=== PATIENT | male | born 1980 | race Caucasian/White ===

== ENCOUNTER 2018-02-09 15:19 | Emergency (ER) | payer OTHER ==
[~2018-02-09] VITALS: Ht 190.5 cm; Wt 127.0 kg
[2018-02-09 15:21] VITALS: TEMP 36.8; Ht 190.5 cm; Wt 127.0 kg
[2018-02-09] MEDS ORDERED: LORAZEPAM 1 MG TAB SL STA (15:26)
--- NOTE | 2018-02-09 15:39 | EMERGENCY ROOM VISIT NOTE ---
History Report prepared by Leena: Hardeep Somers Under the Supervision of: Dr. Shlomo Jaimes M.D. First contact with patient: 15:22 Chief Complaint: OVERDOSE (ACCIDENTAL) Stated Complaint: POSSIBLE ACCIDENTAL DRUG OVERDOSE History of Present Illness The patient is a 37 year old male who presents to the Emergency Room with after accidentally taking a second dose of his regularly prescribed medications today. The patient reports that he is prescribed Flecainide 150 mg twice per day , Paxil 80 mg per day, and Metoprolol XL 100 mg per day, The patient reports that he may have taken his regularly prescribed medications after 0915 this morning, but then accidentally took his medications again at 1200 as he felt he may have missed his morning doses. The patient states that he felt worse after taking the second dose of his medication, but denies feeling any palpitations, chest pain, shortness of breath, or any other illness. The patient notes that he is anxious as he is unsure if he took an accidental second dose of his medications. The patient denies any known drug allergies. Source of History: patient Onset: Earlier today Position: other (Global ) Quality: other ([place] as if he did not take his medication. ) Timing: constant Associated Symptoms: No chest pain, No SOB Note: Denies: Palpitations, general illness. Associated Symptoms: Anxiety Review of Systems See HPI for pertinent positives & negatives. A total of 10 systems reviewed and were otherwise negative. Past Medical & Surgical Medical Problems: (1) Hypertension Family History Patient reports no known family medical history. Social History Marital Status: Housing Status: lives with family Occupation Status: employed Current/Historical Medications Scheduled Atorvastatin (Lipitor), 40 MG PO DAILY Chlorthalidone (Hygroton), 25 MG PO DAILY Flecainide Acetate (Flecainide Acetate), 150 MG PO BID Metoprolol Succinate (Toprol Xl), 100 MG PO DAILY Paroxetine Hcl (Paxil), 80 MG PO DAILY Allergies Coded Allergies: No Known Allergies (Unverified , 02/09/18) Physical Exam Vital Signs Date Time Temp Pulse Resp B/P (MAP) Pulse Ox O2 Delivery O2 Flow Rate FiO2 02/09/18 16:37 68 18 120/59 98 Room Air 02/09/18 16:28 61 02/09/18 15:53 68 18 139/86 02/09/18 15:21 36.8 65 16 142/90 99 Room Air Physical Exam GENERAL: Patient is in no acute distress. HEENT: No acute trauma, normocephalic atraumatic, mucous membranes moist, no nasal congestion, no scleral icterus. NECK: No stridor, no adenopathy, no meningismus, trachea is midline. LUNGS: Clear to auscultation bilaterally, no wheeze, no rhonchi, breath sounds equal. HEART: Without murmurs gallops or rubs, regular rate and rhythm. ABDOMEN: Soft, nontender, bowel sounds positive, no hernias, no peritonitis. EXTREMITIES: No cyanosis or edema, full range of motion of all the joints without pain or difficulty, no signs for acute trauma. NEUROLOGIC: Oriented x 3, no acute motor or sensory deficits, no focal weakness. SKIN: No rash, no jaundice, no diaphoresis. Medical Decision & Procedures Medications Administered Medications (Trade) Dose Ordered Sig/Raul Route Start Time Stop Time Status Last Admin Dose Admin Lorazepam (Ativan Tab) 1 mg NOW STAT SL 02/09/18 15:26 02/09/18 15:29 DC 02/09/18 15:32 1 MG ECG Per My Interpretation Indication: toxicologic Rate (beats per minute): 63 Rhythm: normal sinus Findings: no ectopy, other (No ST elevation or PVCs. QTC was 483ms. ) Change: no significant change Change: Repeat EKG: Normal sinus rhythm, rate 60, no ST elevation, no PVCs, QTC is 482ms. ED Course 1524: The patient was evaluated in room B12. A complete history and physical exam was performed. 1526: Ordered Lorazepam 1mg SL. 1538: I discussed the patient's case with poison center. They do not feel that the patient needs to be watched for any extended time and will be okay to go home. Poison center states that the medications the patient took will not harm him with a double dosage. 1539: I updated the patient regarding the information from poison control. 1622: I reevaluated the patient, he is resting comfortably. Reevaluated the patient. Discussed results and discharge instructions: he verbalized understanding and agreement. The patient is ready for discharge. Medical Decision The patient is a 37 year old 37 who presents to the ED with complaints of accidental drug overdose. Differential diagnoses considered include anxiety, accidental medication overdose, dysrhythmia, QT prolongation, bradycardia, and tachycardia. . The patient presents after possibly taking 2 doses of flecainide, metoprolol and Paxil. He is actually not sure if he took double doses. He was at the outpatient clinic and then presents to the ER. Patient is not bradycardic or tachycardic, he is not in any distress. He is not hypotensive. EKG shows a normal sinus rhythm, there is a mild QT prolongation. I did discuss the case with the poison center, the patient should do fine even if he had taken double the doses of his meds. A repeat EKG was done about an hour later, no lengthening of the QT. The rhythm was still normal sinus. Repeat vital signs revealed no hypotension. The patient is being discharged, he was reassured. He received a dose of oral Ativan which helped his anxiety. Medication Reconcilliation Current Medication List: was personally reviewed by me Blood Pressure Screening Patient's blood pressure: Normal blood pressure Consults Time Called: 1530 Consulting Physician: poison center Returned Call: 1533 I discussed the patient's case with poison center. They do not feel that the patient needs to be watched for any extended time and will be okay to go home. Poison center states that the medications the patient took will not harm him with a double dosage. Impression Primary Impression: Accidental medication overdose Scribe Attestation The scribe's documentation has been prepared under my direction and personally reviewed by me in its entirety. I confirm that the note above accurately reflects all work, treatment, procedures, and medical decision making performed by me. Departure Information Dispostion Home / Self-Care Referrals No Doctor, Assigned (PCP) Forms HOME CARE DOCUMENTATION FORM, IMPORTANT VISIT INFORMATION, WORK / SCHOOL INSTRUCTIONS Patient Instructions My [facility] Additional Instructions return with any worsening symptoms ECG today was ok as we discussed
[2018-02-09] MEDS ORDERED: ATOR-24 PO (15:54)
[2018-02-09] MEDS ORDERED: PARO40TA3 PO (15:54)
[2018-02-09] MEDS ORDERED: HYG/25 PO (15:54)
[2018-02-09] MEDS ORDERED: METO-479 PO (15:54)
[2018-02-09] MEDS ORDERED: FLEC150T PO (15:54)
[2018-02-09 16:37] VITALS: BP 120/59; PULSE 68; O2SAT 98
== END 2018-02-09 16:43 | disposition home or self-care (01) ==
LOC: C.EDB 15:21
DX: T43.221A Poisoning by selective serotonin reuptake inhibitors, accidental (unintentional), initial encounter (principal); T46.2X1A Poisoning by other antidysrhythmic drugs, accidental (unintentional), initial encounter; X58.XXXA Exposure to other specified factors, initial encounter; I10 Essential (primary) hypertension

== ENCOUNTER 2021-06-21 17:34 | Inpatient (IN) ==
--- NOTE | 2021-06-21 17:38 | Emergency Department Note ---
Impression & Plan Cellulitis of knee, left, Adverse reaction to drug, Hypokalemia, Hypomagnesemia ED Provider Note Provider: Dominic Lyons MD DATE OF SERVICE: 06/21/2021 CHIEF COMPLAINT: Medication reaction HISTORY OF PRESENT ILLNESS: Patient is a 40-year-old gentleman history of atrial fibrillation on flecainide and metoprolol not on anticoagulation additionally with history of hypertension on chlorthalidone and longstanding Paxil use presenting today after medication reaction related to a left knee cellulitis is developed over the past several days . Patient states he sustained a small wound to his left knee a day or 2 ago after working out at the gym and noted yesterday some surrounding cellulitis and started Keflex (this was started yesterday). Today this worsened and spread significantly and he started Bactrim and then this afternoon got a IM dose of ceftriaxone as the redness had spread s ome. Shortly after this that an hour prior to arrival began to experience some hoarseness of his voice and a tingling sensation here. Came to the ER for further evaluation. Denies any difficulty breathing or pruritic rash. States he has had back trouble for without issue. Denies significant palpitations or other fever or systemic symptoms. Patient also states some mild pain of his left knee and did drain a little bit of purulence and some serous fluid yesterday. Patient reports some distant history of MRSA abscess in the past. Patient denies any significant pain with movement of the left knee. REVIEW OF SYSTEMS: A total of 10 review of systems was obtained and negative except as stated above in the HPI. PAST MEDICAL HISTORY: As noted above MEDICATIONS: Reviewed her medications with the patient SOCIAL HISTORY: Physician PHYSICAL EXAM: GENERAL: alert and oriented in no acute distress on stretcher Head: normocephalic and atraumatic EYES: No injection, discharge or icterus. NECK: Trachea midline. Supple. ENT: Mucous membranes pink and moist. Pharynx without erythema or exudate. LUNGS: Airway patent. No retractions. Breath sounds clear with good air entry bilaterally. HEART: Regular rate and rhythm. No chest wall tenderness ABDOMEN: Soft and non-tender, without guarding or rebound. SKIN: Acyanotic, warm, dry, without hives EXTREMITIES: Without swelling, tenderness or deformity except for very small wound anterior left left knee with scab. Some surrounding cellulitis but minimal fluctuance and no crepitus. Not circumferential. NEUROLOGICAL: No focal deficits. No aphasia. No facial droop or slurred speech. Ambulatory. EK bpm normal sinus rhythm. No PVC on the twelve-lead is noted. QTC of [address] segment elevation or depression. CONTINUOUS CARDIAC MONITORING: was ordered and showed a heart rate of 70s-80s bpm in normal sinus rhythm occasional PVC Patient's laboratory studies reviewed. Differential includes Cellulitis, abscess, MRSA infection, DVT, necrotizing fasciitis, dermatitis, drug eruption, allergic reaction, as well as other pathologies. IMPRESSION/MEDICAL DECISION MAKING: Patient presents appears to be a cellulitic left knee skin infection. Doubt this represents deeper bone infection. Doubt this represents joint infection. No significant pain with joint movement. No crepitus and I doubt necrotizing fasciitis. Distant history of MRSA reported for the patient. Took some Keflex yesterday and Bactrim at a dose of Rocephin today. Has been on Bactrim before. After the Rocephin began experiencing tingling in his throat and some hoarseness of his voice. No other allergic symptoms otherwise reported. Given a bit of Benadryl here. Basic labs obtained. Do not feel x-rays indicated as I doubt there is a bone issue here. With a quick point of care bedside ultrasound performed myself I do not see a clear abscess that could be drained although some cobblestoning consistent with cellulitis is noted here. White blood cell count is 10.7. Hypokalemia 2.7 noted. Patient afebrile. Cellulitic erythematous area was outlined. Patient states he is feeling bit better but his voice is a little bit off still. Discussed risk benefits associate with steroids and the infection and will defer at this time shared decision making. Discussed options for antibiotic treatment and with his SSRI not an option for Zyvox. Discussed doxycycline and clindamycin versus trial of Dalvance. Patient states with the area. Somewhat bigger area of redness today but he states his pain is feeling better. Discussed risk and benefits and given a first dose of clindamycin and doxycycline here in the ER. Discussed with him given an oral dose of potassium as well as a dose of IV potassium given hypokalemia. EKG obtained given the hypokalemia and magnesium was sent. Magnesium 1.7 and also repleted via IV. Patient given the small amount of additional Benadryl later but has not noted appreciable worsening of symptoms. There are some question of rash on his back but it is nonpruritic and not raised. Patient is breathing well and has not had any decline of throat status or respiratory status. In shared decision-making will replete the potassium, and have the patient observed overnight to ensure resolution of his throat and medication symptoms as well as improvement of his left knee cellulitis. The ospitalist was contacted. DIAGNOSIS: Left knee cellulitis, medication reaction, hypokalemia, hypomagnesemia DISPOSITION: Being evaluated by the hospitalist Past Med/Surg History Social History Smoking Status: Never smoker Preferred Language: Kiswahili Feels Safe at Home: Yes Allergies Allergies Allergy/AdvReac Type Severity Reaction Status Date / Time No Known Allergies Allergy Unverified 06/21/21 18:32 Home Meds Home Medications Medication Instructions Recorded Confirmed atorvastatin 40 mg tablet 40 mg PO HS 06/21/21 06/21/21 chlorthalidone 25 mg tablet 25 mg PO QAM 06/21/21 06/21/21 flecainide 150 mg tablet 150 mg PO BID 06/21/21 06/21/21 metoprolol succinate 25 mg 25 mg PO QAM 06/21/21 06/21/21 tablet,extended release 24 hr paroxetine HCl 40 mg tablet 80 mg PO DAILY 06/21/21 06/21/21 sulfamethoxazole 800 1 tab PO BID 06/21/21 06/21/21 mg-trimethoprim 160 mg tablet Results & Data (ED) Vital Signs Vital Signs - 24 hr 06/21/21 17:34 06/21/21 17:37 06/21/21 19:44 Temperature 35.1 C L Temperature Source Temporal Artery Scan Pulse Rate 87 Pulse Rate [Left] 75 Pulse Rhythm Regular Pulse Strength Normal Respiratory Rate 20 18 Respiratory Effort / Characteristics Non-Labored Spontaneous Respiratory Depth Normal Respiratory Pattern Regular Blood Pressure 161/89 H Blood Pressure [Left Arm] 125/95 Blood Pressure Mean 113 Blood Pressure Mean [Left Arm] 105 Blood Pressure Position Sitting Pulse Oximetry 99 99 Oxygen Delivery Method Room Air Room Air Room Air Sepsis Recent Fever Within 48 Hours No Sepsis New/Unexplained Change in Mental Status No Sepsis Action Taken by Nursing No Action Required 06/21/21 20:53 06/21/21 20:58 Temperature Temperature Source Pulse Rate Pulse Rate [Left] 75 Pulse Rhythm Pulse Strength Respiratory Rate 18 Respiratory Effort / Characteristics Respiratory Depth Respiratory Pattern Blood Pressure Blood Pressure [Left Arm] 125/95 102/86 Blood Pressure Mean Blood Pressure Mean [Left Arm] 105 91 Blood Pressure Position Pulse Oximetry 99 Oxygen Delivery Method Sepsis Recent Fever Within 48 Hours Sepsis New/Unexplained Change in Mental Status Sepsis Action Taken by Nursing Laboratory Data Result diagrams: 06/21/21 18:20 06/21/21 18:20 Lab Results 06/21/21 06/21/21 06/21/21 Range/Units 18:20 18:20 18:20 WBC 10.77 (4.8-10.8) K/uL RBC 4.22 L (4.7-6.1) M/uL Hgb 13.0 L (14.0-18.0) g/dL Hct 36.7 L (42-52) % MCV 87.0 (80-100) fL MCH 30.8 (25-34) pg MCHC 35.4 (32-36) g/dL RDW Std Deviation 37.8 (36.4-46.3) fL RDW Coeff of Grazyna 11.8 (11.5-14.5) % Plt Count 288 (130-400) K/uL MPV 9.1 (7.4-10.4) fL Immature Gran % (Auto) 0.2 % Neut % (Auto) 76.5 % Lymph % (Auto) 12.6 % Cameron % (Auto) 10.0 % Eos % (Auto) 0.6 % Baso % (Auto) 0.1 % Neut # (Auto) 8.23 H (1.4-6.5) K/uL Lymph # (Auto) 1.36 (1.2-3.4) K/uL Cameron # (Auto) 1.08 H (0.11-0.59) K/uL Eos # (Auto) 0.07 (0-0.5) K/uL Baso # (Auto) 0.01 (0-0.2) K/uL Immature Gran # (Auto) 0.02 (0.00-0.02) K/uL Sodium 136 (136-145) mmol/L Potassium 2.7 L (3.5-5.1) mmol/L Chloride 102 (98-107) mmol/L Carbon Dioxide 29 (21-32) mmol/L Anion Gap 5.0 (3-11) BUN 14 (7-18) mg/dl Creatinine 0.86 (0.6-1.4) mg/dl Est Cr Clr Drug Dosing 163.1 ml/min Est GFR ( Amer) 125.7 ml/min Est GFR (Non-Af Amer) 108.5 ml/min BUN/Creatinine Ratio 16.3 (10-20) Glucose 95 (70-99) mg/dl Calcium 9.1 (8.5-10.1) mg/dl Magnesium 1.7 L (1.8-2.4) mg/dl COVID-19 Eval Order SARS-CoV-2 (PCR) (Negative) 06/21/21 06/21/21 Range/Units 19:45 19:45 WBC (4.8-10.8) K/uL RBC (4.7-6.1) M/uL Hgb (14.0-18.0) g/dL Hct (42-52) % MCV (80-100) fL MCH (25-34) pg MCHC (32-36) g/dL RDW Std Deviation (36.4-46.3) fL RDW Coeff of Grazyna (11.5-14.5) % Plt Count (130-400) K/uL MPV (7.4-10.4) fL Immature Gran % (Auto) % Neut % (Auto) % Lymph % (Auto) % Cameron % (Auto) % Eos % (Auto) % Baso % (Auto) % Neut # (Auto) (1.4-6.5) K/uL Lymph # (Auto) (1.2-3.4) K/uL Cameron # (Auto) (0.11-0.59) K/uL Eos # (Auto) (0-0.5) K/uL Baso # (Auto) (0-0.2) K/uL Immature Gran # (Auto) (0.00-0.02) K/uL Sodium (136-145) mmol/L Potassium (3.5-5.1) mmol/L Chloride (98-107) mmol/L Carbon Dioxide (21-32) mmol/L Anion Gap (3-11) BUN (7-18) mg/dl Creatinine (0.6-1.4) mg/dl Est Cr Clr Drug Dosing ml/min Est GFR ( Amer) ml/min Est GFR (Non-Af Amer) ml/min BUN/Creatinine Ratio (10-20) Glucose (70-99) mg/dl Calcium (8.5-10.1) mg/dl Magnesium (1.8-2.4) mg/dl COVID-19 Eval Order Covid19 at [facility] SARS-CoV-2 (PCR) NEGATIVE (Negative) Administered Medications Potassium Chloride (K Brock / Wtr) 10 meq in 100 mls @ 100 mls/hr IV Q1H STA Stop: 06/21/21 21:54 Last Admin: 06/21/21 21:28 Dose: 100 mls/hr Documented by: [id number] Discontinued Medications Clindamycin HCl (Clindamycin Hcl 150 Mg Cap) 450 mg PO NOW ONE Stop: 06/21/21 18:47 Last Admin: 06/21/21 19:06 Dose: 450 mg Documented by: [id number] Diphenhydramine HCl (Diphenhydramine 50 Mg/Ml Vial) 25 mg IV NOW STA Stop: 06/21/21 17:48 Last Admin: 06/21/21 18:25 Dose: 25 mg Documented by: [id number] Diphenhydramine HCl (Diphenhydramine 50 Mg/Ml Vial) 25 mg IV NOW STA Stop: 06/21/21 19:32 Last Admin: 06/21/21 19:39 Dose: 25 mg Documented by: [id number] Doxycycline Hyclate (Doxycycline Hyclate 100 Mg Cap) 100 mg PO NOW STA Stop: 06/21/21 18:47 Last Admin: 06/21/21 19:06 Dose: 100 mg Documented by: [id number] Potassium Chloride (K Brock / Wtr) 10 meq in 100 mls @ 100 mls/hr IV ONE ONE Stop: 06/21/21 20:30 Last Infusion: 06/21/21 21:15 Dose: 0 mls/hr Documented by: [id number] Admin: 06/21/21 19:39 Dose: 100 mls/hr Documented by: [id number] Magnesium Sulfate/Dextrose (Magnesium Sulfate / D5w) 1 gm in 100 mls @ 200 mls/hr IV Q30M PAYAM Stop: 06/21/21 21:14 Last Infusion: 06/21/21 21:23 Dose: 0 mls/hr Documented by: [id number] Admin: 06/21/21 20:51 Dose: 200 mls/hr Documented by: [id number] Potassium Chloride (Potassium Chloride Crtab 20 Meq Tabcr) 40 meq PO NOW STA Stop: 06/21/21 19:32 Last Admin: 06/21/21 19:39 Dose: 40 meq Documented by: [id number] Discharge Plan Visit Data Chief Complaint: Allergic Reaction Stated Complaint: ALLERGIC REACTION TO MEDICINE, SOB ED Provider: Dominic Loyns Discharge Problem: Cellulitis of knee, left, Adverse reaction to drug, Hypokalemia, Hypomagnesemia Patient Disposition: Being Evaluated by Hospitalist Condition: Good Prescriptions Prescriptions: No Action atorvastatin 40 mg tablet 40 mg PO HS RF: 0 flecainide 150 mg tablet 150 mg PO BID RF: 0 chlorthalidone 25 mg tablet 25 mg PO QAM RF: 0 sulfamethoxazole-trimethoprim 800-160 mg tablet 1 tab PO BID RF: 0 metoprolol succinate 25 mg tablet extended release 24 hr 25 mg PO QAM RF: 0 paroxetine HCl 40 mg tablet 80 mg PO DAILY RF: 0 Referrals Referrals: Duane Serna MD [Primary Care Provider] - Discharge Problem: Adverse reaction to drug Qualifiers: Encounter type: initial encounter Qualified Code(s): T50.905A - Adverse effect of unspecified drugs, medicaments and biological substances, initial encounter
[2021-06-21] MEDS ORDERED: diphenhydrAMINE 50 MG/ML VIAL IV STA ×2 (17:47→19:31)
[2021-06-21 18:32] LABS: Basophils # (auto) 0.01 K/uL (0-0.2); Basophils % (auto) 0.1 %; Eosinophils # (auto) 0.07 K/uL (0-0.5); Eosinophils % (auto) 0.6 %; Hematocrit (blood only) 36.7 % (42-52); Immature Granulocytes # (auto) 0.02 K/uL (0.00-0.02); Immature Granulocytes % (auto) 0.2 %; Lymphocytes # (auto) 1.36 K/uL (1.2-3.4); Lymphocytes % (auto) 12.6 %; Mean Corpuscular Hemoglobin 30.8 pg (25-34); Mean Corpuscular Hgb Conc 35.4 g/dL (32-36); Mean Platelet Volume 9.1 fL (7.4-10.4); Monocytes # (auto) 1.08 K/uL (0.11-0.59); Neutrophils # (auto) 8.23 K/uL (1.4-6.5); Neutrophils % (auto) 76.5 %; Platelet Count 288 K/uL (130-400); RDW Coefficient of Variation 11.8 % (11.5-14.5); RDW Standard Deviation 37.8 fL (36.4-46.3); Red Blood Count 4.22 M/uL (4.7-6.1); White Blood Count 10.77 K/uL (4.8-10.8)
[2021-06-21] MEDS ORDERED: CLINDAMYCIN HCL 150 MG CAP PO ONE (18:46)
[2021-06-21] MEDS ORDERED: DOXYCYCLINE HYCLATE 100 MG CAP PO STA (18:46)
[2021-06-21 18:49] LABS: BUN Creatinine Ratio 16.3 (10-20); Calcium 9.1 mg/dl (8.5-10.1); Creatinine Clr Calc Pharmacy 163.1 ml/min; Est GFR (African American) 125.7 ml/min; Est GFR (Non-African American) 108.5 ml/min; Potassium 2.7 mmol/L (3.5-5.1)
[2021-06-21] MEDS ORDERED: POTASSIUM CHLORIDE / WTR 10 MEQ/100 ML PLCT IV ONE (19:31)
[2021-06-21] MEDS ORDERED: POTASSIUM CHLORIDE CRTAB 20 MEQ TABCR PO STA (19:31)
[2021-06-21] MEDS: MAGNESIUM SULFATE / D5W 1 GM/100 ML BAG IV SCH (20:51)
[2021-06-21] MEDS ORDERED: POTASSIUM CHLORIDE / WTR 10 MEQ/100 ML PLCT IV STA (20:55)
--- NOTE | 2021-06-21 21:50 | History and Physical Report ---
DATE OF ADMISSION: 06/21/2021. CHIEF COMPLAINT: Allergic reaction and cellulitis. HISTORY OF PRESENT ILLNESS: A 40-year-old male with past medical history significant for hyperlipidemia, prediabetes, paroxysmal atrial fibrillation, hypertension, history of chronic anxiety disorder, who presents with allergic reaction. The patient had kneeled down about a week ago and had a pebble stuck on his left knee. Then, he started developing erythema around the left knee and he took Keflex. It was not getting better and he had Rocephin and Bactrim today in the doctor's office. After which, his throat felt like hoarse and , was brought into the ER for allergic reaction. In the ER, he received IV Benadryl and is feeling better and also found to have magnesium of 1.7, potassium of 2.7. Currently feeling better, still has some hoarseness of voice, but never had any shortness of breath, no difficulty swallowing. No chest pain, no shortness of breath, no palpitations, no headache, no dizziness, no blurred vision, no double vision, no earache, no runny nose, no sore throat, no cough, no fevers, no nausea, no abdominal pain, normal bowel and bladder movements. No blood in stool or black stools. Normal bladder movements. Currently, resting comfortably and hemodynamically stable. ALLERGIES: No known drug allergies. PAST MEDICAL HISTORY: As mentioned above. PAST SURGICAL HISTORY: Scaphoid fracture repair, tonsillectomy and adenoidectomy, repair of inguinal hernia. MEDICATIONS: The patient is on current Bactrim and Keflex and chlorthalidone 25 mg p.o. daily, flecainide 150 mg p.o. b.i.d., metoprolol succinate 25 mg p.o. daily, paroxetine 80 mg p.o. daily, atorvastatin 40 mg p.o. daily, aspirin 81 mg p.o. daily. FAMILY HISTORY: Significant for maternal uncle had gallbladder cancer, father has high cholesterol, uncle has high cholesterol. SOCIAL HISTORY: . No smoking. Seven beers per week. No drug use. REVIEW OF SYSTEMS: As per HPI. Rest of the review of systems is negative. PHYSICAL EXAMINATION: GENERAL: The patient is of moderate build, not in acute distress. VITAL SIGNS: Temperature 35.1, pulse 75, respiratory rate 18, blood pressure 102/86, and oxygen 99% on room air. HEENT: Pupils equal, round and reactive to light. Oral mucosa moist. NECK: No JVD. No neck masses. CARDIOVASCULAR: S1 and S2 heard. Regular rate and rhythm. No murmur, no gallop. RESPIRATORY SYSTEM: Normal AP diameter. No accessory muscle use. No wheezing, no crackles. ABDOMEN: Soft, bowel sounds present, nontender, no distention. CENTRAL NERVOUS SYSTEM: Alert and oriented. Speech is clear. No facial droop. Insight is good. He moves extremities. EXTREMITIES: Left knee shows small wound on the left knee with no open drainage and erythematous changes going down into the crowder, mild warmth on palpation, mild tenderness near the wound. LABORATORY DATA: WBC 10.7, hemoglobin 13, hematocrit 36.7, platelets 288. Sodium 136, potassium 2.7, chloride 102, bicarbonate 29, BUN 14, creatinine 0.8, serum glucose 95, calcium 9.1, magnesium 1.7. EKG: Normal sinus rhythm, rate of 75, QTc of 484, no significant change was found. ASSESSMENT AND PLAN: This is a 40-year-old male, presents with allergic reaction and cellulitis. 1. Allergic reaction, possibly to Bactrim. The patient also had Keflex and Rocephin, but did fine with penicillin in the past, but we will hold off cephalosporin and Bactrim for now .Received IV Benadryl in the Emergency Room. We will place him on Zyrtec 10 mg daily, IV Benadryl p.r.n., Pepcid 20 mg b.i.d. and prednisone and monitor in the med-telemetry.Taper prednisone for a week. 2. Left Lower extremity cellulitis involving knee. Er started on po Doxycycline and clindamycin which will be continued. 3. Hypokalemia and hypomagnesemia. We will replace. Follow repeat laboratories. 4. History of hypertension. Continue his chlorthalidone and metoprolol succinate. Monitor the blood pressure.Followup Potassium as on chlorthalidone. 5. History of paroxysmal atrial fibrillation, on flecainide and metoprolol succinate. 6. History of generalized anxiety disorder, on paroxetine. 7. History of hyperlipidemia, on statin. 8. Deep venous thrombosis prophylaxis, we will place on heparin subcutaneously. DISPOSITION: Closely monitor in the med-tele. PT/OT prior to discharge. Social service to help with discharge planning. Level 1, full code. Job ID: [id number] MTDD
[2021-06-21] MEDS ORDERED: POLYETHYLENE (MIRALAX) 17 GM PACK PO PRN (22:27)
[2021-06-21] MEDS ORDERED: ACETAMINOPHEN 325 MG TAB PO PRN (22:27)
[2021-06-21] MEDS ORDERED: SODIUM CHLORIDE 0.9% 1000ML 1,000 ML IV SCH (22:27)
[2021-06-21] MEDS ORDERED: ONDANSETRON INJ 2 MG/ML 2 ML VIAL IV PRN (22:27)
[2021-06-21] MEDS ORDERED: diphenhydrAMINE 50 MG/ML VIAL IV PRN (22:27)
[2021-06-21] MEDS ORDERED: NITROGLYCERIN SL 0.4 MG/TAB TAB SL PRN (22:27)
[2021-06-21] MEDS ORDERED: CETIRIZINE HCL 10 MG TABLET PO SCH (22:27)
[2021-06-21] MEDS ORDERED: ATORVASTATIN 40 MG TAB PO SCH (22:27)
[2021-06-21] MEDS: FLECAINIDE ACETATE 100 MG TABLET PO SCH (23:37)
[2021-06-21] MEDS: FAMOTIDINE 20 MG in SYRINGE 3 ML IV SCH (23:38)
[2021-06-21] MEDS: ENOXAPARIN INJ 40 MG/0.4 ML SYR SQ SCH (23:39)
[2021-06-21] MEDS: predniSONE 20 MG TAB PO SCH (23:40)
[2021-06-22] MEDS: MAGNESIUM SULFATE / D5W 1 GM/100 ML BAG IV SCH (00:11)
[2021-06-22 05:56] LABS: Basophils # (auto) 0.02 K/uL (0-0.2); Basophils % (auto) 0.2 %; Eosinophils # (auto) 0.08 K/uL (0-0.5); Eosinophils % (auto) 0.8 %; Hematocrit (blood only) 35.5 % (42-52); Hemoglobin 12.5 g/dL (14.0-18.0); Immature Granulocytes # (auto) 0.02 K/uL (0.00-0.02); Immature Granulocytes % (auto) 0.2 %; Lymphocytes # (auto) 1.52 K/uL (1.2-3.4); Lymphocytes % (auto) 14.4 %; Mean Corpuscular Hemoglobin 30.8 pg (25-34); Mean Corpuscular Hgb Conc 35.2 g/dL (32-36); Mean Corpuscular Volume 87.4 fL (80-100); Mean Platelet Volume 9.4 fL (7.4-10.4); Monocytes # (auto) 0.89 K/uL (0.11-0.59); Monocytes % (auto) 8.4 %; Neutrophils # (auto) 8.03 K/uL (1.4-6.5); Platelet Count 318 K/uL (130-400); RDW Coefficient of Variation 11.8 % (11.5-14.5); Red Blood Count 4.06 M/uL (4.7-6.1); White Blood Count 10.56 K/uL (4.8-10.8)
[2021-06-22 06:15] LABS: BUN Creatinine Ratio 10.9 (10-20); Calcium 8.5 mg/dl (8.5-10.1); Est GFR (African American) 121.8 ml/min; Magnesium 2.3 mg/dl (1.8-2.4); Potassium 3.4 mmol/L (3.5-5.1)
[2021-06-22] MEDS: CLINDAMYCIN HCL 150 MG CAP PO SCH ×3 (06:26→18:35)
[2021-06-22 07:41] LABS: Estimated Average Glucose 123 mg/dl; Hemoglobin A1C 5.9 % (4.5-5.6)
[2021-06-22] MEDS: DOXYCYCLINE HYCLATE 100 MG CAP PO SCH ×2 (08:10→18:35)
[2021-06-22] MEDS: FAMOTIDINE 20 MG in SYRINGE 3 ML IV SCH (08:10)
[2021-06-22] MEDS: predniSONE 20 MG TAB PO SCH (08:10)
[2021-06-22] MEDS: FLECAINIDE ACETATE 100 MG TABLET PO SCH (08:11)
[2021-06-22] MEDS ORDERED: PARoxetine HCL 20 MG TAB PO SCH (09:00)
[2021-06-22] MEDS ORDERED: CHLORTHALIDONE 25 MG TAB PO SCH (09:00)
[2021-06-22] MEDS ORDERED: ADVANCED PROBIOTIC 1250 MG CAPSULE PO SCH (09:00)
[2021-06-22] MEDS ORDERED: METOPROLOL SUCC 25MG EXT REL TAB PO SCH (09:00)
[2021-06-22] MEDS ORDERED: CALCIUM CARBONATE 500 MG CHEWABLE TAB PO PRN (09:16)
[2021-06-22] MEDS ORDERED: PANTOprazole 40 MG TAB PO SCH (09:30)
[2021-06-22] MEDS: ENOXAPARIN INJ 40 MG/0.4 ML SYR SQ SCH (10:01)
[2021-06-22] MEDS ORDERED: POTASSIUM CHLORIDE CRTAB 20 MEQ TABCR PO STA (10:01)
[2021-06-22] MEDS ORDERED: POTASSIUM CHLORIDE 10 MEQ TABCR PO STA (10:05)
--- NOTE | 2021-06-22 14:56 | XRay Report ---
XR knee LT 1 or 2V routine CLINICAL HISTORY: r/o foreign body COMPARISON: None. DISCUSSION: No acute fracture dislocation seen. Few calcifications are seen within anterior aspect of the left kn ee, mostly within soft tissue overlying tibial tuberosity and might represent periarticular calcifica tions, foreign body is less likely. Mild soft tissue edema is seen overlying right knee joint. IMPRESSION: No acute fracture dislocation. Multiple calcifications anteriorly to the tibial tuberosity, likely representing degenerative process . Foreign bodies are less likely. ACT 112: Negative or not required by law. The above report was generated using voice recognition software. It may contain grammatical, syntax o r spelling errors. Electronically signed by: Monica Bee DO 06/22/2021 2:54 PM
--- NOTE | 2021-06-22 16:58 | Electrocardiogram Report ---
Test Reason : Blood Pressure : / mmHG Vent. Rate : 075 BPM Atrial Rate : 075 BPM P-R Int : 180 ms QRS Dur : 102 ms QT Int : 434 ms P-R-T Axes : 020 -20 034 degrees QTc Int : 484 ms Normal sinus rhythm Prolonged QT Abnormal ECG When compared with ECG of 09-FEB-2018 16:27, No significant change was found Confirmed by Edy Leon ([id number]) on 06/22/2021 4:57:48 PM Referred By: REFERRED SELF Confirmed By:Edy Leon
--- NOTE | 2021-06-22 18:24 | Hospitalist Progress Note ---
Date of Service June 22, 2021 Assessment & Plan (1) Adverse reaction to drug: Plan: Present on admission after developing allergic reaction possible due to Bactrim vs Rocephin or Keflex Received IV Benadryl in the Emergency Room. He was started on Zyrtec 10 mg daily, IV Benadryl p.r.n and Pepcid 20 mg b.i.d. prednisone Symptoms resolved while in the ER Normal speech with no dysphagia Currently asymptomatic Resolved (2) Cellulitis of knee, left: Plan: Left knee showed no acute fracture dislocation. Multiple calcifications anteriorly to the tibial tuberosity, likely representing degenerative process. Foreign bodies are less likely. Pt was getting Keflex outpatient, then starting Bactrim and Rocephin shot then developed a reaction Received Doxycycline and Clindamycin, will complete 7 days course Wound cx collected pending case discussed with Ortho ( No official consult placed). No need for any I&D for now Wound has been drained clear serous drainage Continue monitor Electrolytes imbalance Possible related to the allergic reaction in the setting of diuretic Electrolytes replaced Check BMP and mag in 1 week History of hypertension. Continue his chlorthalidone and metoprolol succinate. History of paroxysmal atrial fibrillation Continue on flecainide and metoprolol succinate. History of hyperlipidemia Continue statin. DVT px on heparin subq Disposition Discharge home Admission and Anticipated Discharge Date Admission Date: June 21, 2021 Subjective Pt was seen and examined for follow up of left knee cellulitis Lying in bed with no distress Pt said that the erythema improves significantly he said that he is not having any pain in the left knee His throat symptoms resolved Denies any chest pain, palpitation, dizziness and SOB Physical Exam Physical Exam: General- No acute distress Head- atraumatic Eyes- PERRL, EOMI, ENT- oropharynx clear Neck- supple, no JVD Lungs- clear to auscultation Heart- regular rhythm; no murmur Abdomen- normal bowel sounds, soft, nontender Extremities- no calf tenderness, Left knee shows small wound on the left knee with clear serous drainage Neuro- alert, oriented x 3; PERRL, EOMI; no facial palsy; no dysarthria Skin- warm & dry Results & Data Results & Data ([facility]) Vital Signs (Past 12 Hours) Vital Signs Temp Pulse Resp BP BP Pulse Ox 06/22/21 15:34 37.2 C 68 18 117/76 94 06/22/21 11:29 36.9 C 74 18 116/70 97 Diagnostic Findings XR knee LT 1 or 2V routine CLINICAL HISTORY: r/o foreign body COMPARISON: None. DISCUSSION: No acute fracture dislocation seen. Few calcifications are seen within anterior aspect of the left knee, mostly within soft tissue overlying tibial tuberosity and might represent periarticular calcifications, foreign body is less likely. Mild soft tissue edema is seen overlying right knee joint. IMPRESSION: No acute fracture dislocation. Multiple calcifications anteriorly to the tibial tuberosity, likely representing degenerative process. Foreign bodies are less likely. ACT 112: Negative or not required by law. The above report was generated using voice recognition software. It may contain grammatical, syntax or spelling errors. Electronically signed by: Monica Bee DO 06/22/2021 2:54 PM Dictated: 06/22/21 1453Transcribed: 06/22/21 1453 (1) Adverse reaction to drug Encounter type: initial encounter Qualified Code(s): T50.905A - Adverse effect of unspecified drugs, medicaments and biological substances, initial encounter
--- NOTE | 2021-07-06 08:25 | Discharge Summary ---
Date of Service June 22, 2021 Admission HPI Per Admitting Provider CHIEF COMPLAINT: Allergic reaction and cellulitis. HISTORY OF PRESENT ILLNESS: A 40-year-old male with past medical history significant for hyperlipidemia, prediabetes, paroxysmal atrial fibrillation, hypertension, history of chronic anxiety disorder, who presents with allergic reaction. The patient had kneeled down about a week ago and had a pebble stuck on his left knee. Then, he started developing erythema around the left knee and he took Keflex. It was not getting better and he had Rocephin and Bactrim today in the doctor's office. After which, his throat felt like hoarse and , was brought into the ER for allergic reaction. In the ER, he received IV Benadryl and is feeling better and also found to have magnesium of 1.7, potassium of 2.7. Currently feeling better, still has some hoarseness of voice, but never had any shortness of breath, no difficulty swallowing. No chest pain, no shortness of breath, no palpitations, no headache, no dizziness, no blurred vision, no double vision, no earache, no runny nose, no sore throat, no cough, no fevers, no nausea, no abdominal pain, normal bowel and bladder movements. No blood in stool or black stools. Normal bladder movements. Currently, resting comfortably and hemodynamically stable. Admission Exam Per Admitting Provider GENERAL: The patient is of moderate build, not in acute distress. VITAL SIGNS: Temperature 35.1, pulse 75, respiratory rate 18, blood pressure 102/86, and oxygen 99% on room air. HEENT: Pupils equal, round and reactive to light. Oral mucosa moist. NECK: No JVD. No neck masses. CARDIOVASCULAR: S1 and S2 heard. Regular rate and rhythm. No murmur, no gallop. RESPIRATORY SYSTEM: Normal AP diameter. No accessory muscle use. No wheezing, no crackles. ABDOMEN: Soft, bowel sounds present, nontender, no distention. CENTRAL NERVOUS SYSTEM: Alert and oriented. Speech is clear. No facial droop. Insight is good. He moves extremities. EXTREMITIES: Left knee shows small wound on the left knee with no open drainage and erythematous changes going down into the crowder, mild warmth on palpation, mild tenderness near the wound. Principal Diagnosis Left Lower extremity cellulitis involving knee Allergic reaction Electrolytes imbalance Discharge Exam General- No acute distress Head- atraumatic Eyes- PERRL, EOMI, ENT- oropharynx clear Neck- supple, no JVD Lungs- clear to auscultation Heart- regular rhythm; no murmur Abdomen- normal bowel sounds, soft, nontender Extremities- no calf tenderness, Left knee shows small wound on the left knee with clear serous drainage Neuro- alert, oriented x 3; PERRL, EOMI; no facial palsy; no dysarthria Skin- warm & dry Discharge Data Allergies Allergy/AdvReac Type Severity Reaction Status Date / Time No Known Allergies Allergy Unverified 06/21/21 18:32 Consultations 06/21/21 20:34 ED Decision to Admit Stat Ordered Studies XR knee LT 1 or 2V routine CLINICAL HISTORY: r/o foreign body COMPARISON: None. DISCUSSION: No acute fracture dislocation seen. Few calcifications are seen within anterior aspect of the left knee, mostly within soft tissue overlying tibial tuberosity and might represent periarticular calcifications, foreign body is less likely. Mild soft tissue edema is seen overlying right knee joint. IMPRESSION: No acute fracture dislocation. Multiple calcifications anteriorly to the tibial tuberosity, likely representing degenerative process. Foreign bodies are less likely. ACT 112: Negative or not required by law. The above report was generated using voice recognition software. It may contain grammatical, syntax or spelling errors. Electronically signed by: Monica Bee DO 06/22/2021 2:54 PM Dictated: 06/22/21 1453Transcribed: 06/22/21 1453 Hospital Course (1) Adverse reaction to drug: Present on admission after developing allergic reaction possible due to Bactrim vs Rocephin or Keflex Received IV Benadryl in the Emergency Room. He was started on Zyrtec 10 mg daily, IV Benadryl p.r.n and Pepcid 20 mg b.i.d. prednisone Symptoms resolved while in the ER Normal speech with no dysphagia Currently asymptomatic Resolved (2) Cellulitis of knee, left: Left knee showed no acute fracture dislocation. Multiple calcifications anteriorly to the tibial tuberosity, likely representing degenerative process. Foreign bodies are less likely. Pt was getting Keflex outpatient, then starting Bactrim and Rocephin shot then developed a reaction Received Doxycycline and Clindamycin, will complete 7 days course Wound cx collected pending case discussed with Ortho ( No official consult placed). No need for any I&D for now Wound has been drained clear serous drainage Continue monitor Electrolytes imbalance Possible related to the allergic reaction in the setting of diuretic Electrolytes replaced Check BMP and mag in 1 week History of hypertension. Continue his chlorthalidone and metoprolol succinate. History of paroxysmal atrial fibrillation Continue on flecainide and metoprolol succinate. History of hyperlipidemia Continue statin. DVT px on heparin subq Disposition Discharge home Total Time Total Time Spent Total Time Spent (In Minutes): 35 minutes Discharge Plan Discharge Items Patient Disposition: Home - Self-Care Reason For Visit: ALLERGIC REACTION Discharge Diagnosis: Left Lower extremity cellulitis involving knee Allergic reaction Electrolytes imbalance Condition on Discharge: Good Activity: Resume your previous activity Non-emergency contact: Primary Care Provider Call non-emergency contact if: you have any medication questions and your temperature is above 101 Follow-up/Referrals: Duane Serna MD [Primary Care Provider] - Diet: Heart Healthy Addtl Attending Provider Instructions: Follow up with your primary care provider within 1 week Continue daily wound care Increase your potassium intake in your diet Check BMP and magnesium in 1 week to monitor your electrolytes Seek medical attention if your symptoms worsening ( fever, chills and pain) Please Complete the course of the antibiotics Fall precaution Pending Studies at Discharge: Yes Studies:: Wound culture result Stand-Alone Forms: My [facility], Smoking Cessation Medications and DC Order Prescriptions: Continued atorvastatin 40 mg tablet 40 mg PO HS RF: 0 flecainide 150 mg tablet 150 mg PO BID RF: 0 chlorthalidone 25 mg tablet 25 mg PO QAM RF: 0 metoprolol succinate 25 mg tablet extended release 24 hr 25 mg PO QAM RF: 0 paroxetine HCl 40 mg tablet 80 mg PO DAILY RF: 0 Discontinued sulfamethoxazole-trimethoprim 800-160 mg tablet 1 tab PO BID RF: 0 Discharge Orders: Discharge Order (Routine); Ordered 06/22/21 Ordered By: Carlos A Apodaca Admission Data Admit Date/Time: 06/21/21 20:54 Attending Provider: Carlos A Apodaca Admit Provider: Octavio Randolph Primary Care Provider: Duane Serna Other Providers: Octavio Randolph Other Interventions: Discharge Summary Assessment (RN) Last Done: 06/22/21 18:28
== END 2021-06-22 18:40 | disposition home or self-care (01) | DRG 603 ==
LOC: ED 17:34 → 2N 20:54
DX: R73.03 Prediabetes; I10 Essential (primary) hypertension; I48.0 Paroxysmal atrial fibrillation; E83.42 Hypomagnesemia; I48.91 Unspecified atrial fibrillation; T37.0X5A Adverse effect of sulfonamides, initial encounter; F41.1 Generalized anxiety disorder; Z86.14 Personal history of Methicillin resistant Staphylococcus aureus infection; Y92.009 Unspecified place in unspecified non-institutional (private) residence as the place of occurrence of the external cause; E78.5 Hyperlipidemia, unspecified; E87.6 Hypokalemia; L03.116 Cellulitis of left lower limb